=== PATIENT | male | born 1975 | race Asian ===

== ENCOUNTER 2024-11-12 19:19 | Emergency (ER) | payer BC, SELFPAY ==
[2024-11-12 19:20] VITALS: BMI 31.9
[2024-11-12 20:28] LABS: Basophils # (Auto) 0.1 Thou/mm3 (0.0-0.2); Basophils % (Auto) 0 % (0-2.5); Eosinophils # (Auto) 0.2 Thou/mm3 (0.0-0.5); Eosinophils % (Auto) 2 % (0-10); Hematocrit 47.2 % (41.0-53.0); Hemoglobin 16.5 g/dL (13.5-16.0); Immature Granulocytes Auto 0.06 Thou/mm3 (0.00-0.00); Lymphocytes # (Auto) 2.1 Thou/mm3 (1.0-4.8); Lymphocytes % (Auto) 15 % (10-50); Mean Corpuscular HGB Conc 35.0 g/dl (31.0-37.0); Mean Corpuscular Hemoglobin 29.7 pg (25.0-35.0); Mean Corpuscular Volume 85 fL (80-100); Monocytes # (Auto) 1.0 Thou/mm3 (0.0-0.8); Monocytes % (Auto) 8 % (0-12); Neutrophils # (Auto) 10.3 Thou/mm3 (1.8-7.7); Neutrophils % (Auto) 75 % (37-80); Nucleated Red Blood Cell # 0.00 Thou/mm3 (0.00-0.00); Nucleated Red Blood Cell % 0 /100 WBC (0); Platelet Count 336 Thou/mm3 (140-440); RDW Standard Deviation 39.1 fL (35.1-43.9); Red Blood Count 5.56 Miln/mm3 (4.50-5.90); White Blood Count 13.8 Thou/mm3 (3.8-10.6)
[2024-11-12 20:39] LABS: INR 1.1 (0.9-1.3); Partial Thromboplastin Time 32.8 Seconds (22.0-36.0); Prothrombin Time 11.5 Seconds (9.0-12.2)
[2024-11-12 20:42] VITALS: BP 161/95; PULSE 106; RESP 18; TEMP 37.1; O2SAT 97
[2024-11-12 20:42] LABS: B-Type Natriuretic Peptide < 20 pg/mL (0-100)
[2024-11-12 20:46] LABS: Alanine Aminotransferase 59 U/L (10-49); Albumin, Serum 5.4 gm/dL (3.5-5.0); Albumin/Globulin Ratio 1.9 (1.2-2.2); Alkaline Phosphatase 98 U/L (46-116); Anion Gap 14 (7-16); Aspartate Amino Transferase 27 U/L (0-34); BUN/Creatinine Ratio 13 Ratio (12-20); Bilirubin,Total 0.9 mg/dL (0.3-1.2); Blood Urea Nitrogen 12 mg/dL (9-23); Calcium 10.2 mg/dL (8.3-10.6); Calcium (Corrected) 10.2 mg/dL (8.5-10.1); Carbon Dioxide 22.7 mMol/L (20.0-31.0); Chloride 102 mMol/L (98-107); Creatinine (Component) 0.9 mg/dL (0.6-1.3); Estimated Creatinine Clearance 103.0 mL/min (>60); Globulin 2.9 gm/dL (2.3-3.5); Glucose 146 mg/dL (74-106); Lipase 37 U/L (12-53); Magnesium 1.8 mg/dL (1.6-2.6); Osmolality,Calculated 280 (275-295); Potassium 4.3 mMol/L (3.4-5.1); Sodium 139 mMol/L (136-145); Total Protein 8.3 gm/dL (5.7-8.2); eGFR > 60 See Note
--- NOTE | 2024-11-12 20:53 | EDNOTE_ITS ---
ED Abdominal Pain RME/HPI General Chief Complaint: Abdominal Pain Stated complaint: LEFT ABD PAIN, HX PANCREATITIS Time seen by provider: 11/12/24 20:41 Arrival date/time: 11/12/24 19:19 Limitations: no limitations RME / HPI RME / HPI narrative: DR. ROBERTSON MAIN ED EVALUATION: 49-year-old male with past medical history of hypertension, cholecystectomy, and diabetes mellitus presents with left upper quadrant abdominal pain described as cramping with occasional throbbing for the past 24 hours. Symptoms are associated with nausea and vomiting and worsen with oral intake. Patient notes recent increase in Mounjaro dose 2 weeks ago. Related Data Previous Rx's ?Medication ?Instructions ?Recorded famotidine 40 mg tablet (Pepcid) 40 mg PO QDAY #30 tab s 11/13/24 promethazine 12.5 mg tablet 12.5 mg PO TID PRN nausea and 11/13/24 vomiting #20 tabs Allergies Allergy/AdvReac Type Severity Reaction Status Date / Time No Known Allergies Allergy Verified 11/12/24 19:20 Review of Systems Review of Systems Systems Reviewed: All systems reviewed, normal except as documented Narrative Review of Systems: GEN: No fever, no chills, no weight loss EYES: No discharge, no visual changes, no pain HEENT: No ear pain, no congestion, no sore throat PULM: No shortness of breath, no cough, no congestion CV: No chest pain, no dyspnea on exertion, no palpitations GI: + nausea, + vomiting, no diarrhea, + left upper quadrant abdominal pain, no constipation : No frequency, no urgency and no dysuria MUSC/SKEL: No joint pain, no back pain SKIN: No rash PSYCH: No hallucinations, no depression HEME/LYMPH: No easy bleeding or bruising tendencies NEURO: No weakness, no headache Past Medical History Past Medical History CARDIAC: Positive Cardiac Disorders (HTN), Hypercholesterolemia and Hypertension RESPIRATORY: Positive Sleep Apnea GASTROINTESTINAL: Positive Gastrointestinal Disorders and Pancreatitis ENDOCRINE: Positive Endocrine Disorders and Diabetes Mellitus Type 2 Social History SMOKING STATUS: Former smoker SUBSTANCE USE: does not use ALCOHOL: Never ED Exam General Limitations: Present no limitations General appearance: Present alert and in distress (mild to moderate abdominal pain distress) Head Head exam: Present atraumatic, normocephalic and normal inspection Eye Eye exam: Present normal appearance, PERRL and EOMI ENT ENT exam: Present normal exam, normal oropharynx and mucous membranes moist Neck Neck exam: Present normal inspection, full ROM and trachea midline Chest Chest inspection: Present normal inspection and symmetric chest wall rise Respiratory Respiratory exam: Present normal lung sounds bilaterally Cardiovascular Cardiovascular exam: Present regular rate, normal rhythm and normal heart sounds Abdominal Exam Abdominal exam: Present tenderness (LUQ), normal bowel sounds and other (no peritoneal changes); Absent distention Extremities Exam Extremities exam: Present normal inspection and full ROM Back Exam Back exam: Present normal inspection and full ROM Neurological Exam Neurological exam: Present alert, oriented X3 and CN II-XII intact Psychiatric Psychiatric exam: Present normal affect and normal mood Skin Skin exam: Present warm, dry, intact and normal color Course Quality Measures none Orders Category Date Time Status Insert IV STAT Care 11/12/24 19:44 Active B-Type Natriuretic Peptide Stat Lab 11/12/24 20:05 Completed CBC Stat Lab 11/12/24 20:05 Completed Comprehensive Metabolic Panel Stat Lab 11/12/24 20:05 Completed Drug Screen,Urine Stat Lab 11/12/24 21:18 Completed Lipase Stat Lab 11/12/24 20:05 Completed Magnesium Stat Lab 11/12/24 20:05 Completed Partial Thromboplastin Time Stat Lab 11/12/24 20:05 Completed Prothrombin Time with INR Stat Lab 11/12/24 20:05 Completed UA, C/S IF [Urinalysis, C/S if Indicated] Stat Lab 11/12/24 21:18 Completed Morphine Inj Med 11/12/24 20:52 Discontinued 4 mg IVP X1 ONE Ondansetron Inj [Zofran Inj] Med 11/12/24 20:52 Discontinued 4 mg IVP X1 ONE Pantoprazole Inj [Protonix Inj] Med 11/12/24 23:43 Discontinued 40 mg IVP X1 ONE Sodium Chloride 0.9% 1000 ml [Ns] 1,000 ml Med 11/12/24 20:53 Discontinued IV 999 mls/hr Sodium Chloride 0.9% 1000 ml [Ns] 1,000 ml Med 11/13/24 01:15 Active IV 999 mls/hr Vital Signs Vital signs: Vital Signs Temperature 98.8 F 11/12/24 20:42 Pulse Rate 106 H 11/12/24 20:42 Respiratory Rate 18 11/12/24 20:42 Blood Pressure 161/95 H 11/12/24 20:42 Pulse Oximetry (%) 97 11/12/24 20:42 Oxygen Delivery Method Room Air 11/12/24 20:42 Abdominal Pain MDM MDM Narrative MDM Narrative:: INeelima am scribing for and in the presence of Dr. Robertson. 49-year-old male with history of hypertension, cholecystectomy, and diabetes mellitus presents with 24 hours of left upper quadrant abdominal pain, nausea, and vomiting, worsened by oral intake. Labs reveal WBC 13.8, Hgb 16.5, normal platelet count, elevated calcium, normal lipase (37), and glucose 174. Placed on monitor, given IV fluids and low-dose narcotics with mild symptom improvement. Symptoms likely related to acute gastritis/low grade panreatitis, possibly exacerbated by recent increase in Mounjaro dose. On serial examination patients abdominal examination is benign. Patient remained stable and is expected to be discharged home with symptomatic management and follow-up instructions. Diagnosis: Acute gastritis Patient data External records reviewed:: [facility] previous records Clinical information provided by:: patient Social determinants that could affect healthcare access:: none Patient has the following chronic illnesses:: Hypertension, cholecystectomy, and diabetes mellitus. Patient notes recent increase in Mounjaro dose 2 weeks ago. How is presenting disease/condition affected by chronic disease/condition?: exacerbated by Evaluation data The following diagnostics were reviewed and interpreted by me:: lab results Lab and/or radiology exams considered but not ordered:: none Interpretation Summary: See narrative above. Medications / Prescriptions Medications or Prescriptions considered but not ordered:: none Medication administrations:: Medication Administration History Sodium Chloride (Ns) 1,000 mls @ 999 mls/hr IV .Q1H1M ONE Stop: 11/13/24 02:15 Discontinued Medications Sodium Chloride (Ns) 1,000 mls @ 999 mls/hr IV .Q1H1M ONE Stop: 11/12/24 21:53 Last Infusion: 11/12/24 22:37 Dose: Infused Documented By: Admin: 11/12/24 21:39 Dose: 999 mls/hr Documented By: CVL Morphine Sulfate (Morphine Sulf Inj 10 Mg/Ml Vial) 4 mg IVP X1 ONE Stop: 11/12/24 20:53 Last Admin: 11/12/24 21:41 Dose: 4 mg Documented By: CVL Ondansetron HCl (Ondansetron Inj 2 Mg/Ml Inj 2 Ml) 4 mg IVP X1 ONE; Protocol Stop: 11/12/24 20:53 Last Admin: 11/12/24 21:40 Dose: 4 mg Documented By: CVL Pantoprazole Sodium (Pantoprazole Inj 40 Mg Vial) 40 mg IVP X1 ONE Stop: 11/12/24 23:44 Last Admin: 11/12/24 23:58 Dose: 40 mg Documented By: CG see above Consultations Consultation(s) initiated? (list below): No Diagnosis Differential diagnosis abdominal pain: other (Gastritis, pancreatitis, and bowel obstruction.) Most likely diagnosis given after review of the tests above:: Acute gastritis Admission Indicated Admission indicated?: not indicated Admission Request Was there a request for admission?: No Disposition Plan Disposition Plan: Discharge Discharge Attestation Discharge Attestation: The patient and all family members were given an opportunity to ask questions and understood the discharge instructions. Discharge instructions specifically effects, indications for sooner follow up or return to the emergency department, and the expected course of current diagnosis. Patient condition: Stable Discharge Plan Plan Patient Disposition: HOME (Self Care) Discharge Disposition comment: Stable Prescriptions/Referrals Prescriptions/Med Rec: New promethazine 12.5 mg tablet 12.5 mg PO TID PRN (Reason: nausea and vomiting) Qty: 20 0RF famotidine [Pepcid] 40 mg tablet 40 mg PO QDAY Qty: 30 0RF Referrals: No Primary/Family,Physician [Primary Care Provider] - In 1 week Problem List Clinical Impression: Acute gastritis Patient/Caregiver Discharge Instructions Discharge Activity: as per physical therapy and activity as tolerated Diet Instructions: Clear liquid diet x 24 to 48 hours Education Materials: ED Gastritis (Adult) Additional Instructions: Clear liquid diet x 24 to 48 hours. Medication as directed. Contact PMD as relates to when Mounjaro dosing or discontinuation. Return for fever persistent vomiting escalating abdominal pain or general worse condition. Print Language: Cymraes Stand Alone Forms: Pattie Award Info., Patient Portal Info Letter
[2024-11-12 21:28] LABS: Collection Type, Urine Clean Catch
[2024-11-12 21:33] LABS: Bacteria,Urine Rare; Bilirubin,Urine Negative (Negative); Blood,Urine Negative (Negative); Clarity,Urine Clear (Clear/Hazy); Color,Urine Yellow (Lt Yel-Yel); Culture Indicated,Urine Not Indicated; Glucose, Urine 1+ (Negative); Ketones,Urine 4+ (Negative); Leukocyte Esterase,Urine Negative (Negative); Nitrite,Urine Negative (Negative); PH,Urine 6.0 (5.0-7.0); Protein,Urine 1+ (Neg - Trace); RBC,Urine 2 /hpf (0-3); Specific Gravity,Urine 1.034 (1.001-1.035); Squamous Epithelial Cell,Urine < 1 /hpf (0-5); Urobilinogen,Urine Negative mg/dL (0.0-1.0); WBC,Urine 2 /hpf (0-5)
[2024-11-12] MEDS: SODIUM CHLORIDE 0.9% 1000 ML 1,000 ML 999 ML IV (21:39)
[2024-11-12] MEDS: ONDANSETRON INJ 2 MG/ML INJ 2 ML 4 MG IVP (21:40)
[2024-11-12] MEDS: MORPHINE SULF INJ 10 MG/ML VIAL 4 MG IVP (21:41)
[2024-11-12 21:42] VITALS: BP 159/106; PULSE 99; RESP 18; TEMP 36.8; O2SAT 96
[2024-11-12 22:56] LABS: Amphetamine/Methamp Scrn,U Negative (Negative); Barbiturate Screen,Urine Negative (Negative); Benzodiazepines Screen,Urine Negative (Negative); Benzoylecgonine Screen, Ur Negative (Negative); Fentanyl Screen,Urine Negative (Negative); Opiate Screen,Urine Negative (Negative); THC Screen,Urine Negative (Negative)
[2024-11-12 23:30] VITALS: BP 154/98; PULSE 108; RESP 12; TEMP 36.6; O2SAT 97
[2024-11-13] MEDS: SODIUM CHLORIDE 0.9% 1000 ML 1,000 ML 999 ML IV (01:59)
[2024-11-13 02:00] VITALS: BP 154/97; PULSE 95; RESP 12; TEMP 36.6; O2SAT 98
[2024-11-13 04:45] VITALS: BP 145/98; PULSE 102; RESP 13; TEMP 36.3; O2SAT 97
== END 2024-11-13 05:12 | disposition home or self-care (01) ==
PROVIDERS: Emergency Provider Emergency Medicine
DX: K29.00 Acute gastritis without bleeding (principal)
CPT/HCPCS: 36415; 80053; 80307; 81001; 83690; 83735; 83880; 85025; 85610; 85730; 96361; 96374; 96375; 99283; J2270; J2405; J2470; J7030

== ENCOUNTER 2024-11-14 19:29 | Emergency (ER) | payer BC, SELFPAY ==
[2024-11-14 20:42] LABS: Basophils # (Auto) 0.1 Thou/mm3 (0.0-0.2); Basophils % (Auto) 0 % (0-2.5); Eosinophils # (Auto) 0.1 Thou/mm3 (0.0-0.5); Eosinophils % (Auto) 1 % (0-10); Hematocrit 42.2 % (41.0-53.0); Hemoglobin 14.9 g/dL (13.5-16.0); Immature Granulocytes Auto 0.04 Thou/mm3 (0.00-0.00); Lymphocytes # (Auto) 2.1 Thou/mm3 (1.0-4.8); Lymphocytes % (Auto) 17 % (10-50); Mean Corpuscular HGB Conc 35.3 g/dl (31.0-37.0); Mean Corpuscular Hemoglobin 29.9 pg (25.0-35.0); Mean Corpuscular Volume 85 fL (80-100); Monocytes # (Auto) 1.0 Thou/mm3 (0.0-0.8); Monocytes % (Auto) 8 % (0-12); Neutrophils # (Auto) 9.2 Thou/mm3 (1.8-7.7); Neutrophils % (Auto) 74 % (37-80); Nucleated Red Blood Cell # 0.00 Thou/mm3 (0.00-0.00); Nucleated Red Blood Cell % 0 /100 WBC (0); Platelet Count 306 Thou/mm3 (140-440); RDW Standard Deviation 39.0 fL (35.1-43.9); Red Blood Count 4.99 Miln/mm3 (4.50-5.90); White Blood Count 12.5 Thou/mm3 (3.8-10.6)
[2024-11-14 20:46] VITALS: BP 157/97; PULSE 100; RESP 20; TEMP 37; O2SAT 100; BMI 31.1
--- NOTE | 2024-11-14 20:58 | PD.EDADULT ---
ED General RME/HPI General Chief complaint: Abdominal Pain Stated complaint: ABD PAIN Time Seen by Provider: 11/14/24 21:03 Arrival date/time: 11/14/24 19:29 CC: Left upper quadrant epigastric pain onset 4-1/2 days ago was seen here yesterday for the same complaint sitting up I have a history of pancreatitis . Patient denies nausea vomiting diarrhea. Patient is tearful. I spoke with the provider saw the patient yesterday had a basic workup which showed no pattern for pancreatitis he was treated with gastritis. Related Data Previous Rx's ?Medication ?Instructions ?Recorded famotidine 40 mg tablet (Pepcid) 40 mg PO QDAY #30 tabs 11/13/24 hydrocodone 5 mg-acetaminophen 325 1 tab PO BID PRN pain #10 tabs 11/13/24 mg tablet hydrocodone bitartrate 10 mg 10 mg PO Q12H 5 days #10 ea 11/13/24 capsule, oral only, extended rel 12 hr promethazine 12.5 mg tablet 12.5 mg PO TID PRN nausea and 11/13/24 vomiting #20 tabs Allergies Allergy/AdvReac Type Severity Reaction Status Date / Time No Known Allergies Allergy Verified 11/14/24 19:29 Review of Systems Review of Systems Narrative Review of Systems: GEN: No fever, no chills, no weight loss EYES: No discharge, no visual changes, no pain HEENT: No ear pain, no congestion, no sore throat PULM: No shortness of breath, no cough, no congestion CV: No chest pain, no dyspnea on exertion, no palpitations GI: No nausea, no vomiting, no diarrhea, + pain, no constipation : No frequency, no urgency, no dysuria MUSC/SKEL: No joint pain, no back pain SKIN: No rash PSYCH: No hallucinations, no depression HEME/LYMPH: No easy bleeding or bruising tendencies NEURO: No weakness, no headache Past Medical History Past Medical History NEUROLOGIC: Negative Neurological Disorders, Cerebrovascular Accident, Transient Ischemic Attacks (TIA), Dementia, Alzheimer's Disease, Parkinson's Disease, Brain Tumor, Meningitis, Seizures, Epilepsy, Multiple Sclerosis, Cerebral Palsy, Amyotrophic Lateral Sclerosis (ALS/Yu Gehrig's), Guillain-Ber[place] Syndrome, Spina Bifida, Paralysis, Peripheral Neuropathy, [place]'s Palsy, Subdural Hematoma, Migraine, Head Trauma, Spinal Cord Injury or Traumatic Brain Injury CARDIAC: Positive Cardiac Disorders, Hypercholesterolemia and Hypertension; Negative Congestive Heart Failure RESPIRATORY: Positive Sleep Apnea; Negative Chronic Obstructive Pulmonary Disease (COPD), Asthma, Bronchitis, Emphysema, Pneumonia, Pulmonary Fibrosis, Cystic Fibrosis, Tuberculosis, Pulmonary Embolism or Pulmonary Edema GASTROINTESTINAL: Positive Gastrointestinal Disorders, Pancreatitis and Gall Bladder Disease; Negative Hepatitis, Cirrhosis, Celiac Disease, Gastrointestinal Bleed, Esophageal Varices, Rivera's Esophagus, Colitis, Ulcerative Colitis, Diverticulitis, Diverticulosis, Ulcer, Colorectal Cancer, Irritable Bowel, Crohn's Disease, Obstructive Bowel, Hiatal Hernia, Hemorrhoids, Gastroesophageal Reflux Disease or Obesity GENITOURINARY: Negative Genitourinary Disorders, Renal Disease, Kidney Stones, Polycystic Kidney Disease, Neurogenic Bladder, Inguinal Hernia, Dialysis, Prostate Cancer or Benign Prostatic Hyperplasia REPRODUCTIVE: Negative Breast Cancer, Fibroids, Genital Herpes, Gonorrhea, Syphilis or Testicular Cancer MUSCULOSKELETAL: Negative Musculoskeletal Disorders, Muscular Dystrophy, Myasthenia Gravis, Marfan's Syndrome, Bone Cancer, Arthritis, Rheumatoid Arthritis, Osteoporosis, Degenerative Disk Disease, Gout, Scoliosis, Carpal Tunnel Syndrome, Fibromyalgia, Fractures, Degenerative Joint Disease, Osteomyelitis or Poliovirus ENT: Negative Cataracts or Head Trauma ENDOCRINE: Positive Endocrine Disorders and Diabetes Mellitus Type 2; Negative Diabetes Mellitus Type 1, Hypoglycemia, [place]'s Syndrome, [place]'s Disease, Hyperthyroidism, Hypothyroidism, Parathyroid Disease, Pituitary Disease, Systemic Lupus Erythematosus, Syndrome of Inappropriate Antidiuretic Hormone (SIADH), Adrenal Disease or Graves' Disease HEMATOLOGIC: Negative Blood Disorders, Anemia, Leukemia, Hemophilia, Thalassemia, Sickle Cell Disease or Clotting Problems PSYCHO/SOCIAL: Negative Psychiatric Problems, Schizophrenia, Recreational Drug Use, Bipolar Disorder, Depression, Anxiety, Behavior Problems, Self-Mutilation, Attention Deficit Disorder, Attention Deficit Hyperactivity Disorder, Depression, Post Traumatic Stress Disorder or Eating Disorder OTHER HISTORY: Positive Hospitalization and Measles; Negative Autoimmune Disease, Down Syndrome, Autism, Developmental Delay, Shingles, Falls, Blood Transfusions, Blood Transfusion Reaction, Anesthesia Reactions, Organ Transplant, Chemotherapy, Radiation Therapy, Hyperbaric Therapy, MRSA, VRSA, Vancomycin-Resistant Enterococci, Human Immunodeficiency Virus (HIV), Chicken Pox, Mumps, Rubella (Ni[place]an Measles), Pertussis, Clostridium Difficile, Cancer, Breast Cancer, Colorectal Cancer, Lung Cancer, Prostate Cancer or Testicular Cancer Family History FAMILY HISTORY: Positive Family Surgery; Negative Family Psychiatric Problems, Family Respiratory Disorders, Family Cardiac Disorders, Family Gastrointestinal Problems, Family Cancer or Family Anesthesia Reaction Surgical History SURGICAL: Negative Cardiac Surgery, Open Heart Surgery, Coronary Artery Bypass Graft, Valve Replacement, Vascular Surgery, Coronary Stent, Cardiac Catheterization, Pacemaker, Angiogram, Auto Implanted Cardiovert Defib, Carotid Endarterectomy, Ear Surgery, Tympanostomy Tube, Eye Surgery, Nose Surgery, Oral Surgery, Tonsillectomy, Adenoidectomy, Cochlear Implant, Corneal Transplant, Throat Surgery, Abdominal Surgery, Tracheostomy, Gastric Bypass Surgery, Gastrostomy, Bowel Surgery, Nephrectomy, Transurethral Resection, Joint Replacement, Amputation, Open Reduction Internal Fixation, Arthroscopy, Neurologic Surgery, Brain Shunt, Mastectomy, Vasectomy or Organ Transplant Social History SMOKING STATUS: Never smoker SUBSTANCE USE: does not use ED Exam Narrative Physical exam: [General: In moderate discomfort but not in any acute distress Head normocephalic HEENT: Within acceptable limits Neck is supple nontender Chest equal chest rise nontender to palpation Respiratory: Clear to auscultation no wheezes crackles or rubs CV: Rate rhythm is regular no murmurs rubs or clicks Abdomen mild left upper quadrant epigastric tenderness to palpation no reflexive guarding no rebound tenderness. No lower abdominal pain with palpation. Certain abdomen shows surgical scar for Shameka cystectomy that is well-healed. Back: No CVA tenderness no spinous process tenderness from cervical spine thoracic and lumbar spine Skin: Intact no petechiae rash induration ulceration or crepitus Extremities: Moving all extremity against resistance cap refill less than 2 seconds neurosensory intact Neuro: Awake alert oriented x3 Glascow coma 15 no focal deficits] Course Course Course Narrative: Patient medicated at 2249, is now no longer responding for callback. Patient found to have 2259, patient states that he is run out of his tramadol 50 mg which manages pain. Talk to his PCP and is trying to get an appointment into them. Patient refuses admission just wants a tramadol refill. Quality Measures none Orders Category Date Time Status CT abdomen pelvis wo con Stat Exams 11/14/24 21:00 Completed CBC Stat Lab 11/14/24 20:29 Completed CMP [Comprehensive Metabolic Panel] Stat Lab 11/14/24 20:29 Completed Lipase Stat Lab 11/14/24 20:29 Completed Pantoprazole [Protonix] Med 11/14/24 21:37 Discontinued 40 mg PO X1 ONE oxyCODONE/APAP 5/325 [Percocet 5/325] Med 11/14/24 21:00 Discontinued 1 tab PO X1 ONE Vital Signs Vital signs: Vital Signs Temperature 98.6 F 11/14/24 20:46 Pulse Rate 100 11/14/24 20:46 Respiratory Rate 20 11/14/24 20:46 Blood Pressure 157/97 H 11/14/24 20:46 Pulse Oximetry (%) 100 11/14/24 20:46 Oxygen Delivery Method Room Air 11/14/24 20:46 Discharge Plan Plan Patient Disposition: HOME (Self Care) Patient condition on transfer: Stable Prescriptions/Referrals Prescriptions/Med Rec: No Action promethazine 12.5 mg tablet 12.5 mg PO TID PRN (Reason: nausea and vomiting) Qty: 20 0RF famotidine [Pepcid] 40 mg tablet 40 mg PO QDAY Qty: 30 0RF hydrocodone bitartrate 10 mg capsule, oral only, ER 12hr 10 mg PO Q12H MDD 2 tab 5 Days Qty: 10 0RF hydrocodone-acetaminophen 5-325 mg tablet 1 tab PO BID MDD 10 PRN (Reason: pain) Qty: 10 0RF Referrals: Surinder Garcia MD [Physician] - In 1 week No Primary/Family,Physician [Primary Care Provider] - In 1 week Problem List Clinical Impression: Pancreatitis Patient/Caregiver Discharge Instructions Education Materials: ED Pancreatitis Additional Instructions: Take the medications as prescribed if there is a worsening of symptoms return to the emergency room or importantly follow-up with your primary care and/or pain management. Print Language: Jordanian Stand Alone Forms: Pattie Award Info., Work/School Release, Patient Portal Info Letter PA/NALLELY Supervising Physician PA/NALLELY Supervising Physician: Gordon Drake ENP [facility] Medication Administration(s) Medication Administration History Discontinued Medications Oxycodone/Acetaminophen (Oxycodone/Apap 5/325 Tablet) 1 tab PO X1 ONE Stop: 11/14/24 21:01 Last Admin: 11/14/24 22:32 Dose: 1 tab Documented By: EVEILNA Pantoprazole Sodium (Pantoprazole 40 Mg Tablet) 40 mg PO X1 ONE Stop: 11/14/24 21:38 Last Admin: 11/14/24 22:32 Dose: 40 mg Documented By: EVELINA
[2024-11-14 20:59] LABS: Alanine Aminotransferase 38 U/L (10-49); Albumin, Serum 4.8 gm/dL (3.5-5.0); Albumin/Globulin Ratio 1.8 (1.2-2.2); Alkaline Phosphatase 89 U/L (46-116); Anion Gap 15 (7-16); Aspartate Amino Transferase 20 U/L (0-34); BUN/Creatinine Ratio 11 Ratio (12-20); Bilirubin,Total 0.7 mg/dL (0.3-1.2); Blood Urea Nitrogen 10 mg/dL (9-23); Calcium 9.5 mg/dL (8.3-10.6); Calcium (Corrected) 9.5 mg/dL (8.5-10.1); Carbon Dioxide 22.2 mMol/L (20.0-31.0); Chloride 102 mMol/L (98-107); Creatinine (Component) 0.9 mg/dL (0.6-1.3); Estimated Creatinine Clearance 105.2 mL/min (>60); Globulin 2.7 gm/dL (2.3-3.5); Glucose 150 mg/dL (74-106); Lipase 52 U/L (12-53); Osmolality,Calculated 279 (275-295); Potassium 3.8 mMol/L (3.4-5.1); Sodium 139 mMol/L (136-145); Total Protein 7.5 gm/dL (5.7-8.2); eGFR > 60 See Note
--- NOTE | 2024-11-14 21:00 | XR_ITS ---
Examination: CT abdomen and pelvis without contrast. Coronal 3-D reconstructions. Sagittal 2-D reconstructions. Date and time of exam:November 14, 2024 2148 hours Comparison January 12, 2021 INDICATIONS: Left-sided abdominal pain beginning November 10, 2024, cholecystectomy 10 years ago CTDI: vol (mGy): 7.32. DLP: (mGycm): 409. Technique: Axial images of the abdomen have been obtained, 3 mm slice thickness Intravenous contrast material has not been administered. Low dose protocols were performed. One or more of the following dose reduction techniques were used; automated exposure control, adjustment of the mA and/or KV according to patient size, use of iterative reconstruction technique. Findings: Absent gallbladder Pancreatic calcifications seen with prior episodes of pancreatitis Currently there is mild edema surrounding the pancreas No renal or ureteral calculi, no hydronephrosis Normal appendix No bowel obstruction No bladder mass or bladder calculi Moderate disc narrowing L5-S1 IMPRESSION: Pancreatic calcifications seen with prior episodes of pancreatitis Current mild acute pancreatitis Normal appendix No bowel obstruction
[2024-11-14] MEDS: PANTOPRAZOLE 40 MG TABLET PO (22:32)
[2024-11-14 22:55] VITALS: BP 165/99; PULSE 105; RESP 18; TEMP 36.7; O2SAT 99
[2024-11-14 23:22] VITALS: RESP 16
== END 2024-11-14 23:23 | disposition home or self-care (01) ==
PROVIDERS: Emergency Provider Emergency Medicine
DX: K85.90 Acute pancreatitis without necrosis or infection, unspecified (principal)
CPT/HCPCS: 36415; 74176; 80053; 83690; 85025; 99284; A9270